=== PATIENT | male | born 1960 | race Two or more races ===

== ENCOUNTER 2025-02-24 04:10 | Emergency (ER) | payer OTHER ==
[~2025-02-24] VITALS: Ht 182.9 cm; Wt 100.0 kg
[2025-02-24 05:06] VITALS: PULSE 97; RESP 21; O2SAT 98
--- NOTE | 2025-02-24 05:25 | ED.PDOC ---
History of Present Illness HPI Comments 65-year-old male with past medical history of prior CVA (residual left-sided deficit, wheelchair-bound), recent diagnosis of sleep apnea, hypertension, hyperlipidemia brought in from home for episode of tremulousness, altered mental status noted tonight while he was sleeping. History is taken from the who states that she woke up because she felt as if his whole body was shaking, she tried to wake him up and he did not appear responsive, reports feeling as if his whole-body had stiffened up. Had no tongue biting. No urinary incontinence. Has never had similar episode in the past. No known prior history of seizure disorder. Episode was brief in nature, may have lasted about a minute. states that he just had a sleep study done and was told that he has sleep apnea, recommended CPAP machine. Does have frequent episodes where he stops breathing while he is sleeping, however, this was different from that. The patient states that he recalls episode, he did hear his calling out his name, however, states that he could not respond. States that after he became more alert he was feeling as if his left arm was trembling, felt as if he has Parkinson's disease. However, denies having similar episodes recently. When the arrived shortly after arrival to the emergency department she stated that he now appeared to be as normal mental baseline. Was slightly confused after this initial episode. Chief Complaint: Tremors Time Seen by MD: 04:14 Allergies: Coded Allergies: NO KNOWN ALLERGIES (Unverified , 02/24/25) Information Source: Patient, Spouse Mode of Arrival: EMS Past Medical History PAST MEDICAL HISTORY: CVA, HTN Past Medical History (Other): Sleep apnea Family History Family History: Family hx of HTN Social History Smoker: Non-Smoker Alcohol: Denies ETOH Use Drugs: Denies Drug Use Lives In: Home Constitutional: denies: chills, diaphoresis, fatigue, fever, malaise, sweats, weakness, others EENTM: denies: blurred vision, double vision, ear bleeding, ear discharge, ear drainage, ear pain, ear ringing, eye pain, eye redness, hearing loss, mouth pain, mouth swelling, nasal discharge, nose bleeding, nose congestion, nose pain, photophobia, tearing, throat pain, throat swelling, voice changes, others Respiratory: denies: cough, hemoptysis, orthopnea, SOB at rest, shortness of breath, SOB with excertion, stridor, wheezing, others Cardiovascular: denies: chest pain, dizzy spells, diaphoresis, Dyspnea on exertion, edema, irregular heart beat, left arm pain, lightheadedness, palpitations, PND, syncope, others Gastrointestinal: denies: abdomen distended, abdominal pain, blood streaked bowels, constipated, diarrhea, dysphagia, difficulty swallowing, hematemesis, melena, nausea, poor appetite, poor fluid intake, rectal bleeding, rectal pain, vomiting, others Genitourinary: denies: burning, dysuria, flank pain, frequency, hematuria, incontinence, penile discharge, penile sore, pain, testicle pain, testicle swelling, urgency, others Neurological: reports: others (Tremulousness); denies: dizziness, fainting, headache, left sided numbness, left sided weakness, numbness, paresthesia, pre- existing deficit, right sided numbness, right sided weakness, seizure, speech problems, tingling, tremors, weakness Musculoskeletal: denies: back pain, gout, joint pain, joint swelling, muscle pain, muscle stiffness, neck pain, others Integumetry: denies: bruises, change in color, change in hair/nails, dryness, laceration, lesions, lumps, rash, wounds, others Allergic/Immunocompromised: denies: Difficulty Healing, Frequent Infections, Hives, Itching, others Hematologic/Lymphatic: denies: anemia, blood clots, easy bleeding, easy bruising, swollen glands, others Endocrine: denies: excessive hunger, excessive sweating, excessive thirst, excessive urination, flushing, intolerance to cold, intolerance to heat, unexplained weight gain, unexplained weight loss, others Psychiatric: denies: anxiety, bipolar disorder, depression, hopeless, panic disorder, schizophrenia, sleepless, suicidal, others All Other Systems: Reviewed and Negative Physical Exam General Appearance: No Apparent Distress, Normal HEENT: Normal ENT Inspection, Pharynx Normal, TMs Normal Neck: Full Range of Motion, Non-Tender, Normal, Normal Inspection Respiratory: Chest Non-Tender, Lungs Clear, No Accessory Muscle Use, No Respiratory Distress, Normal Breath Sounds Cardiovascular: No Edema, No JVD, No Murmur, No Gallop, Normal Peripheral Pulses, Regular Rate/Rhythm Breast Exam: Deferred Gastrointestinal: No Organomegaly, Non Tender, No Pulsatile Mass, Normal Bowel Sounds, Soft Genitalia: Deferred Pelvic: Deferred Rectal: Deferred Extremities: No calf tenderness, Normal capillary refill, Normal inspection, Normal range of motion, Non-tender, No pedal edema Musculoskeletal : Apperance: Normal Neurologic: Alert, shampoo assistant II-XII nml as Tested, Normal Affect, Normal Mood, Other (Left-sided hemiplegia (baseline from prior stroke)) Cerebellar Function: Normal Reflexes: Normal Skin: Dry, Normal Color, Warm Lymphatic: No Adenopathy Was a procedure done? Was a procedure done?: No EKG EKG : Pulse Rate (adult): 111 [place]: Normal Cardiac Rhythm: ST Block: None Hypertrophy: None ST: Normal Differential Dx Considerations may include: Essential tremor vs generalized tonic-clonic seizure vs sleep apnea X-Ray, Labs, Meds, VS Vital Signs Date Time Temp Pulse Resp B/P (MAP) Pulse Ox O2 Delivery O2 Flow Rate FiO2 02/24/25 05:36 111 02/24/25 05:06 97 21 98 Room Air* 0 21 02/24/25 05:06 98.6 97 21 156/79 (104) 98 98.6 02/24/25 04:37 111 02/24/25 04:10 98.1 117 18 188/80 98 98.1 Lab Test 02/24/25 05:23 02/24/25 05:07 Range/Units White Blood Count 7.5 4.4-10.8 10^3/uL Red Blood Count 4.33 L 4.5-5.90 10^6/uL Hemoglobin 12.7 L 13.5-17.5 g/dL Hematocrit 36.7 L 41.0-53.0 % Mean Corpuscular Volume 84.7 80.0-100.0 fL Mean Corpuscular Hemoglobin 29.4 28.0-32.0 pg Mean Corpuscular Hemoglobin Concent 34.7 32.0-36.0 g/dL Red Cell Distribution Width 14.0 11.8-14.3 % Platelet Count 194 140-450 10^3/uL Mean Platelet Volume 8.7 6.9-10.8 fL Neutrophils (%) (Auto) 70.5 37.0-80.0 % Lymphocytes (%) (Auto) 21.0 10.0-50.0 % Monocytes (%) (Auto) 6.9 0.0-12.0 % Eosinophils (%) (Auto) 1.3 0.0-7.0 % Basophils (%) (Auto) 0.3 0.0-2.0 % Neutrophils # (Auto) 5.3 1.6-8.6 10 ^3/uL Lymphocytes # (Auto) 1.6 0.4-5.4 10 ^3/uL Monocytes # (Auto) 0.5 0-1.3 10 ^3/uL Eosinophils # (Auto) 0.1 0-0.8 10 ^3/uL Basophils # (Auto) 0 0-0.2 10 ^3/uL Nucleated Red Blood Cells 0.0 % Sodium Level 141 136-145 mmol/L Potassium Level 3.7 3.5-5.1 mmol/L Chloride Level 106 98-107 mmol/L Carbon Dioxide Level 24 20-31 mmol/L Anion Gap 11 5-15 Blood Urea Nitrogen 17 9-23 mg/dL Creatinine 0.88 0.700-1.30 mg/dL Glomerular Filtration Rate Calc 94 >90 mL/min BUN/Creatinine Ratio 19.3 10.0-20.0 Serum Glucose 186 H 74-106 mg/dL Calcium Level 9.8 8.7-10.4 mg/dL Troponin I High Sensitivity 5 </=54 ng/L Plasma/Serum Blood Alcohol < 3.0 <10 mg/dL Urine Color Pending Urine Clarity Pending Urine pH Pending Urine Specific [place] Pending Urine Protein Pending Urine Ketones Pending Urine Blood Pending Urine Nitrite Pending Urine Bilirubin Pending Urine Urobilinogen Pending Urine Leukocyte Esterase Pending Urine RBC Pending Urine Microscopic WBC Pending Urine Squamous Epithelial Cells Pending Urine Bacteria Pending Urine Glucose Pending Urine Opiates Screen Pending Urine Fentanyl Screen Pending Urine Barbiturates Screen Pending Urine Phencyclidine Screen Pending Urine Amphetamines Screen Pending Urine Benzodiazepines Screen Pending Urine Cocaine Screen Pending Urine Cannabinoids Screen Pending Time of 1ST Reevaluation: 06:16 (Patient resting comfortably at this time, no acute complaints currently.) Reevaluation 1ST: Unchanged Time of 2ND Reevaluation: 06:40 Reevaluation 2ND: Improved Patient Education/Counseling: Diagnosis, Treatment, Need For Follow Up Family Education/Counseling: Diagnosis, Treatment, Need For Follow Up SEPSIS Sepsis Screen Date sepsis recognized/suspect: Feb 24, 2025 Time Sepsis recognized/suspect: 0410 Recent Procedure: No On Antibiotic Therapy: No Respiratory Rate >20: No Heart Rate >90: Yes Temp<36 C (96.8 F) or >38.3 C: No SBP <90 or MAP <65 mmHG: No New Acute Mental Status Change: No Is the patient on CPAP, BIPAP,: No Physician Orders Head Without Contrast (02/24/25 04:14) Urinalysis (02/24/25 04:14) Drug Screen (02/24/25 04:14) Chest Xray 1 View (02/24/25 04:14) Imaging Transfer Request (02/24/25 06:36) Vital Signs Date Time Temp Pulse Resp B/P (MAP) Pulse Ox O2 Delivery O2 Flow Rate FiO2 02/24/25 05:36 111 02/24/25 05:06 97 21 98 Room Air* 0 21 02/24/25 05:06 98.6 97 21 156/79 (104) 98 98.6 02/24/25 04:37 111 02/24/25 04:10 98.1 117 18 188/80 98 98.1 Laboratory Tests Test 02/24/25 05:23 White Blood Count 7.5 10^3/uL (4.4-10.8) Departure 1 Departure Time of Disposition: 05:33 (65-year-old male with past medical history of prior CVA (residual left-sided deficit, wheelchair-bound), recent diagnosis of sleep apnea, hypertension, hyperlipidemia brought in from home for episode of tremulousness, altered mental status noted tonight while he was sleeping. When the patient arrives to the emergency department he does not appear altered, recalls the event. confirms that he is no longer altered. Given this brief episode of tremulousness, possible total body shaking with confusion afterwards consider possible generalized tonic-clonic seizure with postictal confusion. Patient arrives with baseline neurologic examination with left-sided hemiplegia. CT of the head was performed which is negative for any acute intracranial process, shows chronic encephalomalacia from prior CVA. CBC with no evidence of critical leukocytosis or significant anemia. Metabolic panel with no evidence of acute electrolyte abnormalities or acute kidney insufficiency. Patient noted to be tachycardic upon arrival, however, was tremulous upon initial assessment. Has no history of alcohol abuse, alcohol level is negative, no tongue fasciculations, not concerning for alcohol withdrawal. Patient with recurrent episodes of apnea related to sleep apnea, could have had an apneic episode. A chest x-ray was performed which shows no evidence of any acute cardiopulmonary process. Patient with no recent infectious symptoms reported, not concerning for sepsis, infectious etiology of tachycardia. Given the patient's episode of possible generalized tonic clonic seizure-like activity will be admitted for further workup and management. Latoya johnson is a [facility] patient, discussed the case with Dr. Flores for transfer. Labs, imaging pending at the time that I had initially discussed with Dr. Flores. However, he was informed that even a fall of the workup today came back within normal limits I would like to have the patient admitted for further observation, possible EEG to further evaluate this episode of tremulousness, altered mental status. Dr. Nguyễn from [facility] called back, he was informed of the patient's workup. Will accept the patient for transfer to [facility] Case #[id number] ) Impression: Primary Impression: Tremulousness Additional Impressions: Acute delirium History of cerebrovascular accident (CVA) with residual deficit Disposition: ADMITTED INPATIENT Admit to: Tele Condition: Fair Discharged With: Self Critical Care Note Critical Care Time?: No Stability Stability form required: KRISTIAN Mayers MD Feb 24, 2025 05:25
[2025-02-24 05:45] LABS: Hematocrit 36.7 % (41.0-53.0); Hemoglobin 12.7 g/dL (13.5-17.5); Mean Corpuscular Hemoglobin 29.4 pg (28.0-32.0); Mean Corpuscular Volume 84.7 fL (80.0-100.0); Nucleated Red Blood Cells % 0.0 %
[2025-02-24 05:49] LABS: Chloride 106 mmol/L (98-107); Potassium 3.7 mmol/L (3.5-5.1); Sodium 141 mmol/L (136-145)
[2025-02-24 05:50] LABS: Anion Gap 11 (5-15); Calcium 9.8 mg/dL (8.7-10.4); Carbon Dioxide 24 mmol/L (20-31)
[2025-02-24 05:55] LABS: BUN/Creatinine Ratio 19.3 (10.0-20.0); Blood Urea Nitrogen 17 mg/dL (9-23); Glucose 186 mg/dL (74-106)
--- NOTE | 2025-02-24 05:55 | ECG ---
[facility] Test Date: 2025-02-24 Test Time: 04:37:42 Pat Name: YANCY ESPARZA Department: ED Room: Gender: M [employer]: : 1960 Requested By: KRISTIAN ORTEGA Order Number: [id number] Reading MD: Ramos Awad Measurements Intervals [place] Rate: 111 P: 22 MS: 164 QRS: 32 QRSD: 88 T: 49 QT: 324 QTc: 441 Interpretive Statements Sinus tachycardia Borderline repolarization abnormality Electronically Signed On 02-24-2025 17:07:20 PST by Ramos Awad Please click the below link to view image of tracing.
[2025-02-24 06:40] LABS: Urine Protein, UAD 1+ (Negative)
[2025-02-24 06:42] LABS: Amphetamine Screen, Urine Neg (NEGATIVE); Barbiturate Scree,Urine Neg (NEGATIVE); Benzodiazephine Screen, Urine Neg (NEGATIVE); Cannabinoid Screen, Urine Neg (NEGATIVE); Cocaine Screen, Urine Neg (NEGATIVE); Opiate Scree,Urine Neg (NEGATIVE); Phencyclidine Screen, Urine Neg (NEGATIVE)
--- NOTE | 2025-02-24 06:46 | DVH ---
CHEST RADIOGRAPH Indication: AMS Technique: Single frontal view of the chest was obtained Comparison: None FINDINGS: Lines and Tubes: None Lungs: No focal consolidation. Pleura: No effusion. No pneumothorax. Cardiomediastinal contours: Unremarkable Bones: No acute osseous abnormality. IMPRESSION: 1. No acute cardiopulmonary disease.
--- NOTE | 2025-02-24 06:48 | DVH ---
EXAM: CT HEAD WITHOUT CONTRAST INDICATION: AMS, h/o prior CVA w/ left sided deficit TECHNIQUE: CT of the head without intravenous contrast. Coronal and sagittal reformatted images are submitted. Radiation Dose : 1. Head: CT Dose: CTDI volume is 69.15 mGy. Dose-length product is 1362.3 mGy*cm The dose indicators for CT are the volume Computed Tomography (CT) Dose Index (CTDIvol) and the Dose Length Product (DLP), and are measured in units of mGy and mGy-cm, respectively. These indicators are not patient dose, but values generated from the CT scanner acquisition factors. The report includes radiation exposure data for exposures received during this examination. All CT scans at this medical facility are performed using dose modulation techniques as appropriate to a performed exam including the following: Automated exposure control was utilized; adjustment of the MA and/or KV according to patient size; and use of iterative reconstruction technique. COMPARISON: None FINDINGS: There is no evidence of acute intracranial hemorrhage, extra-axial collection, mass effect, midline shift, herniation or hydrocephalus. Old right parietal lobe infarct. The ventricles, sulci and cisterns are age appropriate. The molina-white differentiation is intact. The visualized paranasal sinuses and mastoid air cells are clear. No depressed calvarial fracture. The surrounding soft tissues are unremarkable. IMPRESSION: 1. No acute intracranial abnormality.
[2025-02-24 07:45] VITALS: PULSE 95; RESP 16; O2SAT 98
[2025-02-24 09:54] VITALS: BP 125/74; PULSE 76; RESP 16; TEMP 100; O2SAT 97
== END 2025-02-24 10:25 | disposition short-term general hospital (02) ==
LOC: EDBD 04:10 → ER 04:10
DX: R25.1 Tremor, unspecified (principal); R41.0 Disorientation, unspecified; E78.5 Hyperlipidemia, unspecified; G47.30 Sleep apnea, unspecified; I10 Essential (primary) hypertension; Z86.73 Personal history of transient ischemic attack (TIA), and cerebral infarction without residual deficits; Z79.899 Other long term (current) drug therapy
CPT/HCPCS: 36415; 70450; 71045; 80048; 80307; 80320; 81001; 84484; 85025; 93005